=== PATIENT | male | born 1945 | race Caucasian/White ===

== ENCOUNTER → 2018-12-15 | Outpatient (CLI) | payer BC ==
--- NOTE | 2018-12-15 14:45 | PCVCIMAG ---
APPROVED REPORT Indications Bruit Risk Factors Hyperlipidemia Diabetes, Doppler Spectral Velocity Analysis PSV / EDVPSV / EDV ECA (R) 85 / 8 cm/sECA (L) 76 / 10 cm/s dICA (R) 68 / 23 cm/sdICA (L) 84 / 30 cm/s Geri (R) 55 / 17 cm/smICA (L) 74 / 21 cm/s pICA (R) 55 / 12 cm/spICA (L) 58 / 19 cm/s Bulb (R) 61 / 14 cm/sBulb (L) 85 / 16 cm/s dCCA (R) 100 / 18 cm/sdCCA (L) 102 / 19 cm/s mCCA (R) 98 / 18 cm/smCCA (L) 119 / 22 cm/s Vert (R) 31 / 6 cm/sVert (L) 43 / 11 cm/s ICA/CCA 0.68ICA/CCA 0.82 Basic Measurements Blood Pressure: Pulses: Right Left RightLeft Brachial(Sitting) 126/42hoMx604/80mmHgTemporal Real Time B-Mode Imaging Vert. (R)AntegradeVert. (L)Antegrade Findings The right carotid bulb has no significant plaque. The right proximal internal carotid artery shows no significant stenosis. The right common carotid artery shows no significant stenosis. The right external carotid artery shows no significant stenosis. The left carotid bulb has no significant plaque. The left proximal internal carotid artery shows no significant stenosis. The left common carotid artery shows no significant stenosis. The left external carotid artery shows no significant stenosis. Conclusion 1. No significant stenosis involving either carotid artery. 2. Antegrade vertebral flow.
--- NOTE | 2018-12-15 15:41 | PCVCIMAG ---
APPROVED REPORT Study performed: 12/15/2018 14:52:19 Exam: Stress Echocardiogram Indication: Chest pain , Dyspnea, fatigue, RBBB, DM, coronary atheroscelrosis by calcium score Patient Location: Echo lab Stress Nurse: Treasure Jerez RN Status: routine Ht: 6 ft 2 in HR: 70 bpm BP: 122/84 mmHg Rhythm: NSR Procedure The patient underwent an Exercise Stress Test using the Gustavo Protocol. Blood pressure, heart rate, and EKG were monitored. An Echocardiogram was performed by security systems technician in four stages in quad fashion. At peak stress, four selected images were obtained and placed side by side with resting images for comparison. Stress Test Details Stress Test: Exercise stress testing was performed using a Gustavo protocol. HR Resting HR: 70 bpmMax Heart Rate (APMHR): 149 bpm Max HR Achieved: 153 bpmTarget HR (85% APMHR): 126 bpm % of APMHR: 102 Recovery HR: 96 bpm HR response to stress: Normal HR response to stress BP Resting BP: 122/84 mmHg Max BP: 182/70 mmHg Recovery BP: 120/62 mmHg BP response to stress: Normal blood pressure response to stress. ECG Resting ECG: Sinus Rhythm non-specific intraventricular block Stress ECG: Sinus Rhythm ST Change: Normal Arrhythmia: None Recovery ECG: Sinus Rhythm, RBBB Recovery ST Change: Normal Recovery Arrhythmia: None Clinical Reason for Termination: Maximal effort Stress Symptoms: Dyspnea, Leg Fatigue Exercise duration: 9 min sec Highest Stage Achieved: Stage 3: 3.4 mph at 14% grade. Exercise capacity: 10.4 METs Overall Exercise Capacity for Age: Normal Scale: Active Angina Score: None Pre-Stress Echo The resting Echocardiogram showed normal left ventricular contractility with an estimated Ejection Fraction of about >55%. Normal wall motion in all segments on baseline images. Post-Stress Echo The stress Echocardiogram showed normal left ventricular contractility with an estimated Ejection Fraction of about 65%. Normal augmentation of wall motion in all segments on post stress images. Clinical No clinical or ECG evidence for ischemia. Conclusion Clinical Response: Non-ischemic Exercise Capacity: Average Stress ECG Response: Non-ischemic Stress Echo Images: Non-ischemic The left ventricle is normal in size and wall thickness in both the rest and stress images. Other Information Study Quality: Adequate <Conclusion> The left ventricle is normal in size and wall thickness in both the rest and stress images.
== END | disposition home or self-care (01) ==
LOC: PCVCIMAG 13:56
PROVIDERS: ATTEND Internal Medicine Cardiovascular Disease
DX: R09.89 Other specified symptoms and signs involving the circulatory and respiratory systems (principal); R07.89 Other chest pain; R06.02 Shortness of breath; I10 Essential (primary) hypertension; E78.00 Pure hypercholesterolemia, unspecified; R93.1 Abnormal findings on diagnostic imaging of heart and coronary circulation; Z82.49 Family history of ischemic heart disease and other diseases of the circulatory system
CPT/HCPCS: 93325; 93351; 93880